=== PATIENT | male | born 1995 | race American Indian/Alaskan Native ===

== ENCOUNTER 2018-12-26 11:11 | Emergency (ER) | payer OTHER ==
--- NOTE | 2018-12-26 11:17 | Event Note ---
ED Screening Note Date of service: 12/26/18 Time: 11:15 ED Screening Note: This is a 23 y.o. M. that presents to the ER with pruritus and facial swelling. Patient states he was stung by a bee about 10-15 minutes ago. Took Benadryl 5 minutes ago. This initial assessment/diagnostic orders/clinical plan/treatment(s) is/are subject to change based on patients health status, clinical progression and re- assessment by fellow clinical providers in the ED. Further treatment and workup at subsequent clinical providers discretion. Patient/guardian urged not to elope from the ED as their condition may be serious if not clinically assessed and managed. Initial orders include: ACC for further evaluation.
[2018-12-26] MEDS ORDERED: DECADRON IV ONE (11:32)
[2018-12-26] MEDS ORDERED: PEPCID IV ONE (11:32)
--- NOTE | 2018-12-26 11:46 | Emergency Department Report ---
ED General Adult HPI - General Chief complaint: Allergic Reaction Stated complaint: STUNG BY BEE/ITCHING Time Seen by Provider: 12/26/18 11:14 Source: patient Mode of arrival: Ambulatory Limitations: No Limitations - History of Present Illness Initial comments: Patient is a 23-year-old black male who is presenting status post wasp sting on his left upper extremity. Patient states he was stung and then began to have itching and shortness of breath with difficulty swallowing. Patient states that the shortness of breath is improved however he still very itchy. Patient drove here himself. Patient had no syncope or palpitations nausea vomiting or abdominal pain. - Related Data Previous Rx's Medication Instructions Recorded Last Taken Type Famotidine [Pepcid] 40 mg PO QHS #7 tablet 12/26/18 Unknown Rx diphenhydrAMINE [Benadryl CAP] 25 mg PO Q8HR #10 capsule 12/26/18 Unknown Rx predniSONE [Deltasone] 20 mg PO QDAY #5 tab 12/26/18 Unknown Rx traMADol [Ultram] 50 mg PO Q6HR PRN #10 tablet 12/26/18 Unknown Rx Allergies Allergy/AdvReac Type Severity Reaction Status Date / Time No Known Allergies Allergy Unverified 12/26/18 11:12 ED Review of Systems ROS: Stated complaint: STUNG BY BEE/ITCHING Other details as noted in HPI Comment: All other systems reviewed and negative ED Past Medical Hx - Past Medical History Previous Medical History?: No - Surgical History Past Surgical History?: No - Social History Smoking Status: Current Every Day Smoker - Medications Home Medications: Home Medications Medication Instructions Recorded Confirmed Last Taken Type Famotidine [Pepcid] 40 mg PO QHS #7 tablet 12/26/18 Unknown Rx diphenhydrAMINE [Benadryl CAP] 25 mg PO Q8HR #10 capsule 12/26/18 Unknown Rx predniSONE [Deltasone] 20 mg PO QDAY #5 tab 12/26/18 Unknown Rx traMADol [Ultram] 50 mg PO Q6HR PRN #10 tablet 12/26/18 Unknown Rx ED Physical Exam - General Limitations: No Limitations General appearance: alert, in no apparent distress - Head Head exam: Present: atraumatic, normocephalic - Eye Eye exam: Present: normal appearance - ENT ENT exam: Present: mucous membranes moist - Neck Neck exam: Present: normal inspection - Respiratory Respiratory exam: Present: normal lung sounds bilaterally. Absent: respiratory distress, wheezes, rales - Cardiovascular Cardiovascular Exam: Present: regular rate, normal rhythm. Absent: systolic murmur, diastolic murmur, rubs, gallop - GI/Abdominal GI/Abdominal exam: Present: soft, normal bowel sounds. Absent: distended, tenderness, guarding, rebound - Rectal Rectal exam: Present: deferred - Extremities Exam Extremities exam: Present: normal inspection - Back Exam Back exam: Present: normal inspection - Neurological Exam Neurological exam: Present: alert, oriented X3 - Psychiatric Psychiatric exam: Present: normal affect, normal mood - Skin Skin exam: Present: warm, dry, intact, normal color, rash, urticaria (scattered\) ED Course Vital Signs 12/26/18 11:14 Temperature 97.5 F L Pulse Rate 52 L Respiratory 18 Rate Blood Pressure 134/78 O2 Sat by Pulse 99 Oximetry ED Medical Decision Making - Medical Decision Making Patient given a dose of Decadron and Pepcid orally discharged home with Benadryl several more days of steroid and Pepcid. Critical care attestation.: If time is entered above; I have spent that time in minutes in the direct care of this critically ill patient, excluding procedure time. ED Disposition Clinical Impression: Acute urticaria Bee sting Qualifiers: Encounter type: initial encounter Injury intent: accidental or unintentional Qualified Code(s): T63.441A - Toxic effect of venom of bees, accidental (unintentional), initial encounter Disposition: DC-01 TO HOME OR SELFCARE Is pt being admited?: No Does the pt Need Aspirin: No Condition: Stable Instructions: Insect Bite or Sting (ED) Referrals: VIRGEN DORADO MD [Referring] - as needed Time of Disposition: 11:46
[2018-12-26 12:13] VITALS: BP 116/60
== END 2018-12-26 12:16 | disposition home or self-care (01) ==
LOC: ED 11:11
DX: T63.441A Toxic effect of venom of bees, accidental (unintentional), initial encounter (principal); L50.9 Urticaria, unspecified; F17.200 Nicotine dependence, unspecified, uncomplicated; Y92.89 Other specified places as the place of occurrence of the external cause
CPT/HCPCS: 96374; 96375; 99282; J1100